=== PATIENT | male | born 1955 ===

== ENCOUNTER 2016-11-11 07:37 | Day surgery (SDC) | payer MEDICAID ==
[2016-11-11 08:05] VITALS: BMI 41.1
[2016-11-11] MEDS ORDERED: cefTRIAXone (Rocephin) 1 gm Inj ONE (08:18)
[2016-11-11 08:37] VITALS: RESP 18
[2016-11-11] MEDS ORDERED: Lactated Ringer's 1,000 ML IV ONE (10:00)
[2016-11-11] MEDS ORDERED: Propofol 10 mg/ml Inj (20 ML) ONE (12:30)
[2016-11-11] MEDS ORDERED: Midazolam 2 MG/2 ML VIAL ONE (12:31)
[2016-11-11] MEDS ORDERED: cefTRIAXone (Rocephin) 1 gm Inj IM ONE (12:40)
[2016-11-11] MEDS ORDERED: HYDROmorphone 0.5 mg/0.5 ml ISec ONE (14:04)
[2016-11-11] MEDS ORDERED: HYDROmorphone 0.5 mg/0.5 ml ISec IVP PRN (14:06)
[2016-11-11] MEDS ORDERED: Lactated Ringer's 1,000 ML IV SCH (14:06)
[2016-11-11 17:03] VITALS: BP 123/60; PULSE 81; TEMP 98; O2SAT 98
--- NOTE | 2016-11-11 17:58 | OP ---
PROCEDURE DATE: 11/11/2016 PREOPERATIVE DIAGNOSIS: Prostate hypertrophy. POSTOPERATIVE DIAGNOSIS: Prostate hypertrophy. PROCEDURE PERFORMED: GreenLight laser of the prostate plus excision of prostatic calculi. PROCEDURE: The patient was placed on the operating table in dorsal lithotomy position. The area of the groin was draped and prepped in a sterile manner. Using a laser scope, [facility]. Once inside the bladder, identified the area of prostatic growth that needed to be resec jacque. I began resecting. At the area of the apex of the prostate, mostly on the left side, there was a combination of very large stones and radioactive seeds seen. The laser kept kicking off because o f the flashback from these objects but I was able to maneuver them out. In total, there must have be en about 10 stones but one was rather large. I had to use a resectoscope to go in and remove all the se calculi from the bladder and once this was done, I was able to finish with the laser the resection . I had a good opening from the verumontanum into the bladder. Ureteral orifices were clear. At th is time, when all this was done, the instrumentation was removed. The patient then had a #22 three-w ay Brown catheter inserted. CBI initially was completely clear. The patient was taken from the oper ating room in good condition. I estimated the blood loss to be less than 20 mL. Lakeshia Hercules MD cc: 48 TT: 11/11/2016 17:57:28 sn
== END 2016-11-11 17:05 | disposition home or self-care (01) ==
LOC: H.OPSURG 07:37
PROVIDERS: ATTEND Urology
DX: N40.0 Benign prostatic hyperplasia without lower urinary tract symptoms (principal); I10 Essential (primary) hypertension

== ENCOUNTER 2016-11-20 08:10 | Emergency (ER) | payer MEDICAID ==
[2016-11-20 08:11] VITALS: BMI 41.1
[2016-11-20 08:25] VITALS: O2SAT 98
[2016-11-20 09:38] LABS: BASO % 0.5 % (0.0-2.0); EOS # 0.3 K/uL (0.0-0.7); EOS % 2.7 % (0.0-4.0); HEMATOCRIT 43.9 % (35.0-51.0); LYMPH # 2.2 K/uL (1.0-4.3); LYMPH % 23.3 % (20.0-40.0); MEAN CELL VOLUME 87.8 fl (80.0-94.0); MEAN CORPUSCULAR HEMOGLOBIN 29.5 pg (27.0-31.0); MEAN CORPUSCULAR HGB CONC 33.6 g/dL (33.0-37.0); MEAN PLATELET VOLUME 8.6 fl (7.2-11.7); MONO # 0.5 K/uL (0.0-0.8); MONO % 5.1 % (0.0-10.0); NEUT # 6.4 K/uL (1.8-7.0); NEUT % 68.4 % (50.0-75.0); NRBC % 0.1 % (0.0-0.0); RED CELL DISTRIBUTION WIDTH 13.1 % (11.5-14.5); WHITE BLOOD COUNT 9.4 K/uL (4.8-10.8)
[2016-11-20 09:48] LABS: ALB/GLOB RATIO 1.5 (1.0-2.1); ALKALINE PHOSPHATASE 78 U/L (38-126); ALT/SGPT 47 U/L (21-72); AST/SGOT 28 U/L (17-59); BILIRUBIN,TOTAL 0.7 mg/dl (0.2-1.3); BLOOD UREA NITROGEN 19 mg/dl (9-20); CALCIUM 9.7 mg/dL (8.4-10.2); CARBON DIOXIDE 28 mmol/L (22-30); CHLORIDE 100 mmol/L (98-107); GFR AFRICAN-AMERICAN > 60; GLUCOSE,RANDOM 191 mg/dL (75-110); POTASSIUM 4.5 MMOL/L (3.6-5.0); SODIUM 140 mmol/l (132-148); TOTAL PROTEIN 7.6 G/DL (6.3-8.2)
[2016-11-20 09:49] LABS: RBC URINE 4307 /hpf (0-3); URINE BACTERIA OCC (<OCC); URINE BILIRUBIN NEGATIVE (NEGATIVE); URINE BLOOD LARGE (NEGATIVE); URINE COLOR AMBER (YELLOW); URINE GLUCOSE (UA) >=500 mg/dL (Normal); URINE KETONE TRACE mg/dL (NEGATIVE); URINE LEUKOCYTE ESTERASE TRACE Leu/uL (Negative); URINE PROTEIN 100 mg/dL (NEGATIVE); URINE UROBILINOGEN 0.2-1.0 mg/dL (0.2-1.0); WBC URINE 44 /hpf (0-5)
--- NOTE | 2016-11-20 09:54 | ED PDOC ---
HPI: Male Pain <Anabel Gibson - Last Filed: 11/22/16 12:34> Chief Complaint (Provider): Male Genitourinary History Per: Patient, Family () History/Exam Limitations: no limitations Onset/Duration Of Symptoms: Days (x2 days, since yesterday 11/19/2016) Current Symptoms Are (Timing): Still Present Additional Complaint(s): 61 y/o female presents to the emergency department with a complaint of experiencing urinary symptoms such as dysuria and hematuria that worsen at the end of his urination associated with chills since yesterday, 11/19/2016. As per history from , patient had prostate surgery with Dr. Lakeshia Hercules on 05/2017 and was concerned due to symptoms. Denies fever or vomiting. <Dwayne Fry Y - Last Filed: 11/24/16 23:22> Time Seen by Provider: 11/20/16 08:30 Chief Complaint (Nursing): Male Genitourinary Past Medical History Vital Signs: Last Vital Signs Temp 97.6 F 11/20/16 12:24 Pulse 78 11/20/16 12:24 Resp 19 11/20/16 12:24 BP 128/78 11/20/16 12:24 Pulse Ox 98 11/20/16 12:24 <Anabel Gibson - Last Filed: 11/22/16 12:34> Reviewed: Historical Data, Nursing Documentation, Vital Signs Vital Signs: Last Vital Signs Temp 98.5 F 11/20/16 08:25 Pulse 80 11/20/16 08:25 Resp 18 11/20/16 08:25 BP 149/79 11/20/16 08:25 Pulse Ox 98 11/20/16 08:25 - Medical History PMH: Arthritis, Back Problems, CHF, Dementia, HTN, Hypercholesterolemia, Rheumatoid Arthritis, Sleep Apnea Denies: Chronic Kidney Disease - Surgical History Surgical History: Cholecystectomy, Hernia Repair Other surgeries: Prostate surgery 11/11/2016 - Family History Family History: States: Unknown Family Hx - Social History Current smoker - smoking cessation education provided: No Alcohol: None Drugs: Denies - Immunization History Hx Tetanus Toxoid Vaccination: No Hx Influenza Vaccination: Yes Hx Pneumococcal Vaccination: No <Dwayne Fry Y - Last Filed: 11/24/16 23:22> - Home Medications Home Medications: Ambulatory Orders Medication Instructions Recorded Aspirin 81 mg PO DAILY 10/19/16 Donepezil HCl [Aricept] 5 mg PO HS 10/19/16 Memantine [Namenda] 5 mg PO DAILY 10/19/16 Nifedipine [Procardia Xl] 60 mg PO DAILY 10/19/16 Omeprazole 40 mg PO DAILY 10/19/16 Tamsulosin [Flomax] 0.4 mg PO DAILY 10/19/16 hydrALAZINE [Apresoline] 50 mg PO BID 10/19/16 Alfuzosin HCl [Uroxatral] 10 mg PO HS 11/11/16 Doxazosin [Cardura] 1 mg PO HS 11/11/16 Hydrocodone/Acetaminophen [[place] 7.5 - 325 mg PO Q6 PRN 11/11/16 10-325 Tablet] [place]-3 Fatty Acids/Fish Oil [Fish 1,000 mg PO BID 11/11/16 Oil 1,000 mg Softgel] Simvastatin [Simvastatin] 20 mg PO HS 11/11/16 metFORMIN [glucOPHAGE] 500 mg PO BID 11/11/16 - Allergies Allergies/Adverse Reactions: Allergies Allergy/AdvReac Type Severity Reaction Status Date / Time No Known Allergies Allergy Verified 11/11/16 08:05 Review of Systems ROS Statement: Except As Marked, All Systems Reviewed And Found Negative Constitutional: Positive for: Chills. Negative for: Fever Gastrointestinal: Negative for: Vomiting Genitourinary Male: Positive for: Dysuria, Hematuria <Dwayne Fry Y - Last Filed: 11/24/16 23:22> Physical Exam - Reviewed Nursing Documentation Reviewed: Yes Vital Signs Reviewed: Yes - Physical Exam Appears: Positive for: Non-toxic, No Acute Distress Head Exam: Positive for: ATRAUMATIC, NORMAL INSPECTION, NORMOCEPHALIC Skin: Positive for: Normal Color, Warm, Dry Neck: Positive for: Normal, Supple Cardiovascular/Chest: Positive for: Regular Rate, Rhythm. Negative for: Murmur Respiratory: Positive for: Normal Breath Sounds. Negative for: Accessory Muscle Use, Respiratory Distress Gastrointestinal/Abdominal: Positive for: Normal Exam, Soft. Negative for: Tenderness Neurologic/Psych: Positive for: Alert, Oriented <Dwayne Fry Y - Last Filed: 11/24/16 23:22> - Laboratory Results Result Diagrams: 11/20/16 09:20 11/20/16 09:29 <PaigeAnabel - Last Filed: 11/22/16 12:34> - Laboratory Results Result Diagrams: 11/20/16 09:20 11/20/16 09:29 - ECG O2 Sat by Pulse Oximetry: 98 (RA) Pulse Ox Interpretation: Normal <Dwayne Fry - Last Filed: 11/24/16 23:22> Medical Decision Making Medical Decision Making: Urine cultures is positive. I spoke with patient and his who assisted with translation. Rx for macrobid was called into [facility] for patient, . Patient has follow up today with urologist. <PaigeAnabel - Last Filed: 11/22/16 12:34> Medical Decision Making: Time: 09:15 Initial impression: Urinary symptoms status post prostate surgery Initial plan: --Urine C&S --Urinalysis STAT --Reevaluation Time: 10:10 --Pending call back from Dr. Hercules Time: 10:14 --Case disscussed with Dr. Hercules who recommend liter of IV fluids here, have patient stop the aspirin for 4 days, drinks lots of water and follow up with him on 11/22/2016. --Sodium Chloride 1,000 ml IV 200 mls/hr Time: 11:43 --Upon provider reevaluation patient is medically stable, and requires no further treatment in the ED at this time. Patient will be discharged home. Counseling was provided and all questions were answered regarding diagnosis and need for follow up with Dr. Lakeshia Hercules on Friday. There is agreement to discharge plan. Return if symptoms persist or worsen. Clinical Impression: Hematuria Scribe Attestation: Documented by Bria Marcum, acting as a scribe for Dwayne Fry MD. Provider Scribe Attestation: All medical record entries made by the Scribe were at my direction and personally dictated by me. I have reviewed the chart and agree that the record accurately reflects my personal performance of the history, physical exam, medical decision making, and the department course for this patient. I have also personally directed, reviewed, and agree with the discharge instructions and disposition. <Dwayne Fry - Last Filed: 11/24/16 23:22> Disposition <Anabel Gibson - Last Filed: 11/22/16 12:34> - Patient ED Disposition Is Patient to be Admitted: No Counseled Patient/Family Regarding: Studies Performed, Diagnosis, Need For Followup - Disposition Disposition: Routine/Home Disposition Time: 11:10 <Dwayne Fry - Last Filed: 11/24/16 23:22> - Clinical Impression Clinical Impression: Hematuria - Disposition Referrals: [facility] [Outside] Lakeshia Hercules MD [Medical Doctor] - Condition: IMPROVED Additional Instructions: follow up with Dr Hercules on friday stop taking ASA for now until you are seen return to the ED with any worsening or concerning symptoms. Instructions: Acute Hematuria (ED) Print Language: GAMBIAN
[2016-11-20] MEDS ORDERED: Sodium Chloride 0.9% 1,000 ML IV STA (10:14)
[2016-11-20 12:25] VITALS: BP 128/78; PULSE 78; RESP 19; TEMP 97.6
== END 2016-11-20 12:25 | disposition home or self-care (01) ==
LOC: H.ER 08:10
DX: R31.9 Hematuria, unspecified (principal); R30.0 Dysuria; E78.00 Pure hypercholesterolemia, unspecified; F03.90 Unspecified dementia, unspecified severity, without behavioral disturbance, psychotic disturbance, mood disturbance, and anxiety; I11.0 Hypertensive heart disease with heart failure; Z79.84 Long term (current) use of oral hypoglycemic drugs